=== PATIENT | female | born 1930 | race Caucasian/White ===

== ENCOUNTER → 2017-01-16 | Outpatient (CLI) | payer MEDICARE, OTHER ==
--- NOTE | 2017-01-16 11:17 | RADRPT ---
PROCEDURE: XR Chest. CLINICAL INDICATION: COUGH TECHNIQUE: PA and lateral views of the chest were obtained. COMPARISON: Chest x-ray from 10/27/2013. FINDINGS: There is stable mild cardiomegaly. The aortic arch is calcified. The lungs are hyperexpanded with flattening of the diaphragm. There are no focal infiltrates. There is no significant pleural effusion or pneumothorax. There are mild degenerative changes in the thoracic spine including small anterior osteophytes . IMPRESSION: Hyperexpanded lungs without focal infiltrates or effusions. Stable mild cardiomegaly. Aortic atherosclerosis. There are mild degenerative changes in the thoracic spine including small anterior osteophytes . RPTAT: EE Physician Jesse Date Time Electronically viewed and signed by Physician Jesse on 01/16/2017 11:16 /
== END | disposition home or self-care (01) ==
LOC: RAD 10:25
PROVIDERS: ATTEND Internal Medicine Geriatric Medicine
DX: R05 Cough (principal); I51.7 Cardiomegaly; I70.0 Atherosclerosis of aorta; M25.78 Osteophyte, vertebrae
CPT/HCPCS: 71020